=== PATIENT | female | born 1995 | race Caucasian/White ===

== ENCOUNTER 2017-02-03 04:26 | Emergency (ER) | payer BC ==
[2017-02-03 04:37] VITALS: BP 123/72
--- NOTE | 2017-02-03 05:28 | ED ---
Dora Diamond Rebecca, scribed for Shante Mesa MD on 02/03/17 at 0442 . Lower Extremity - HPI Summary HPI Summary: Pt is a 21 y/o F BIBA who presents to ED c/o R ankle pain s/p mechanical fall. At 0230 this morning, the pt was walking in a stairwell without lights when she suddenly slipped down 3 steps. R ankle pain and swelling began immediately after impact and has been constant since onset. Pain is currently severe, ranked 7/10 and characterized as sharp. Sx aggravated by movement, alleviated by nothing. Denies any other symptoms including fever. - History of Current Complaint Chief Complaint: EDExtremityLower Stated Complaint: RIGHT ANKLE INJURY Hx Obtained From: Patient Mechanism Of Injury: Fall From A Standing Position Onset of Pain: Prior to Arrival Onset/Duration: Still Present Severity Initially: Severe Severity Currently: Severe Pain Intensity: 7 Pain Scale Used: 0-10 Numeric Timing: Constant Location: Is Discrete @ - R ankle Character Of Pain: Sharp Associated Signs And Symptoms: Positive: Swelling. Negative: Fever Aggravating Factor(s): Movement Alleviating Factor(s): Nothing - Allergies/Home Medications Allergies/Adverse Reactions: Allergies Allergy/AdvReac Type Severity Reaction Status Date / Time Tree Nuts Allergy Anaphylatic Verified 02/03/17 04:56 Shock PMH/Surg Hx/FS Hx/Imm Hx Endocrine/Hematology History: Denies: Hx Diabetes Cardiovascular History: Denies: Hx Hypertension Respiratory History: Reports: Hx Asthma Infectious Disease History: No Infectious Disease History: Denies: Traveled Outside the [place] in Last 30 Days - Family History Known Family History: Positive: Other - HLD (father) - Social History Occupation: Student Alcohol Use: Occasionally Substance Use Type: Reports: None Smoking Status (MU): Never Smoked Tobacco Review of Systems Negative: Fever Positive: Arthralgia - R ankle pain s/p mechanical fall All Other Systems Reviewed And Are Negative: Yes Physical Exam - Summary Physical Exam Summary: General: Well appearing, no pain distress Skin: Warm, Skin Color Reflects Adequate Perfusion, Dry Eyes: EOMI, DANIAL ENT: Pharynx normal, TMs normal Neck: Supple, nontender Respiratory: CTA, breath sounds present, no rhonchi, no wheezes, no rales Cardiovascular: RRR, no murmur, no rub, no gallop Abdomen: Soft, nontender, Non-distended, no guarding, no rebound Bowel: Present Musculoskeletal: No edema, tenderness on the lateral side of the R ankle. No tenderness on the medial aspect of the ankle. Neuro: Sensory/motor intact, A&Ox3, CN intact 2-12 Psych: Affect/mood appropriate Triage Information Reviewed: Yes Vital Signs On Initial Exam: Initial Vitals Temp Pulse Resp BP Pulse Ox 99.1 F 110 16 123/72 98 02/03/17 04:28 02/03/17 04:28 02/03/17 04:28 02/03/17 04:28 02/03/17 04:28 Vital Signs Reviewed: Yes Diagnostics - Vital Signs Vital Signs Temp Pulse Resp BP Pulse Ox 02/03/17 04:28 99.1 F 110 16 123/72 98 - Laboratory Lab Statement: Any lab studies that have been ordered have been reviewed, and results considered in the medical decision making process. - Radiology Ankle XR Xray Interpretation: Positive (See Comments) - Avulsion fracture on the medial malleolus Radiology Interpretation Completed By: ED Physician Re-Evaluation - Re-Evaluation First Eval Re-Evaluation Time: 05:21 Change: Unchanged Comment: Discussed XR results with patient and the current treatment plan to D/ C the patient and have her followup with orthopedics. Lower Extremity Course/Dx - Course Course Of Treatment: mild medial malleolar tenderness (avulsion fx on xray) with lateral malleolar swelling normal mortisse. pt to be placed in a cam walker with ortho followup - Diagnoses Provider Diagnoses: Avulsion fracture Discharge - Discharge Plan Condition: Stable Disposition: HOME Prescriptions: HYDROcodone/ACETAMIN 5-325 MG* [[place] 5-325 TAB*] 1 tab PO Q8H PRN #14 tab MDD 3 PRN Reason: Pain Patient Education Materials: Avulsion Fracture (ED) Referrals: Jose Maciel MD [Medical Doctor] - 2 Days The documentation as recorded by the Dora lancaster Rebecca accurately reflects the service I personally performed and the decisions made by me, Shante Mesa MD.
[2017-02-03] MEDS: HYDROcodone/ACETAMIN 5-325 MG* 1 TAB PO ONE ×2 (05:52→05:58)
--- NOTE | 2017-02-03 08:13 | RAD ---
INDICATION: Right ankle injury. TECHNIQUE: 3 views of the right ankle were obtained. FINDINGS: Soft tissue swelling is noted along the anterolateral aspect of the ankle. There is suggestion of a small avulsion fracture fragment arising from the tip of the medial malleolus. No other fractures are seen. IMPRESSION: SOFT TISSUE SWELLING AND SMALL AVULSION FRACTURE FRAGMENT ARISING FROM THE TIP OF THE MEDIAL MALLEOLUS.
== END 2017-02-03 06:06 | disposition home or self-care (01) ==
LOC: ED 04:26
DX: S82.51XA Displaced fracture of medial malleolus of right tibia, initial encounter for closed fracture (principal); R60.0 Localized edema; W10.9XXA Fall (on) (from) unspecified stairs and steps, initial encounter; Y93.9 Activity, unspecified; Y92.9 Unspecified place or not applicable; Y99.9 Unspecified external cause status
CPT/HCPCS: 99283

== ENCOUNTER 2018-07-26 17:12 | Emergency (ER) | payer BC ==
[2018-07-26] MEDS ORDERED: Lidocaine 2% VISCOUS* 15 ML UDC PO ONE (17:14)
[2018-07-26] MEDS ORDERED: Acetaminophen TAB* 325 MG PO ONE (17:17)
--- NOTE | 2018-07-26 18:09 | ED ---
Influenza-Like Illness - HPI Summary HPI Summary: This is a 22-year-old female, history of asthma, who works as a emergency department scribe, who presents for sore throat since yesterday. Mild pain with swallowing. Also reports a mild headache, no associated cough. Watery diarrhea started yesterday as well. The diarrhea has been nonbloody. She also presents with chills. She has not yet received her influenza immunization. - History of Current Complaint Chief Complaint: EDFluSymptoms Time Seen by Provider: 07/26/18 17:13 Hx Obtained From: Patient Onset/Duration: Gradual Onset, Lasting Days - 2, Still Present Severity: Moderate Associated Signs & Symptoms: Fever, Sore Throat, Diarrhea Related Hx: Possible Flu/Infectious Exposure - Allergy/Home Medications Allergies/Adverse Reactions: Allergies Allergy/AdvReac Type Severity Reaction Status Date / Time Tree Nuts Allergy Anaphylatic Verified 02/03/17 04:56 Shock Home Medications: Home Medications NK [No Home Medications Reported] 07/26/18 [History Confirmed 07/26/18] PMH/Surg Hx/FS Hx/Imm Hx Previously Healthy: No Endocrine/Hematology History: Denies: Hx Diabetes Cardiovascular History: Denies: Hx Hypertension Respiratory History: Reports: Hx Asthma Infectious Disease History: No Infectious Disease History: Denies: Traveled Outside the [place] in Last 30 Days - Family History Known Family History: Positive: Other - HLD (father) - Social History Alcohol Use: Occasionally Substance Use Type: Reports: None Smoking Status (MU): Never Smoked Tobacco Review of Systems Positive: Fever Eyes: Negative Negative: Photophobia ENT: Negative Cardiovascular: Negative Respiratory: Negative Gastrointestinal: Negative Genitourinary: Negative Musculoskeletal: Negative Positive: Myalgia Skin: Negative Neurological: Negative Negative: Headache, Weakness Psychological: Normal All Other Systems Reviewed And Are Negative: Yes Physical Exam Triage Information Reviewed: Yes Vital Signs On Initial Exam: Initial Vitals Temp Pulse Resp BP Pulse Ox 39.2 C 114 17 125/69 96 07/26/18 17:13 07/26/18 17:13 07/26/18 17:13 07/26/18 17:13 07/26/18 17:13 Vital Signs Reviewed: Yes Appearance: Positive: Well-Appearing Skin: Positive: Warm, Dry Head/Face: Positive: Normal Head/Face Inspection Eyes: Positive: Normal, EOMI, DANIAL ENT: Positive: Tonsillar exudate, Other - There is no peritonsillar abscess.. Negative: Trismus, Muffled voice, Hoarse voice Neck: Positive: Supple, Nontender, No Lymphadenopathy Respiratory/Lung Sounds: Positive: Clear to Auscultation, Breath Sounds Present Cardiovascular: Positive: Normal, RRR Abdomen Description: Positive: Nontender, No Organomegaly, Soft Bowel Sounds: Positive: Present Musculoskeletal: Positive: Normal Neurological: Positive: Normal Psychiatric: Positive: Normal AVPU Assessment: Alert - Lenka Coma Scale Best Eye Response: 4 - Spontaneous Best Motor Response: 6 - Obeys Commands Best Verbal Response: 5 - Oriented Coma Scale Total: 15 Diagnostics - Vital Signs Vital Signs Temp Pulse Resp BP Pulse Ox 07/26/18 17:13 39.2 C 114 17 125/69 96 - Laboratory Lab Results: Lab Results 07/26/18 Range/Units 17:40 Group A Strep Rapid Negative (Negative) Lab Statement: Any lab studies that have been ordered have been reviewed, and results considered in the medical decision making process. Flu Symptom Course/Dx - Course Course Of Treatment: The patient's tolerating by mouth, nontoxic appearing, the fevers resolved. Influenza and strep testing is negative, viral etiology. - Diagnoses Provider Diagnoses: Acute viral pharyngitis Discharge - Sign-Out/Discharge Documenting (check all that apply): Patient Departure - Discharge Plan Condition: Good Disposition: HOME Patient Education Materials: Pharyngitis (ED) Forms: *Work Release Referrals: Tammy Gracia, [employer] [Primary Care Provider] - 2 Days Additional Instructions: take ibuprofen, warm to me, chicken soup. Ice cream may also help. - Billing Disposition and Condition Condition: GOOD Disposition: Home
[2018-07-26 19:37] VITALS: BP 126/83
== END 2018-07-26 19:37 | disposition home or self-care (01) ==
LOC: ED 17:12
DX: J02.9 Acute pharyngitis, unspecified (principal); R50.9 Fever, unspecified; R19.7 Diarrhea, unspecified
CPT/HCPCS: 36415; 86308; 87651; 99283; A9270-GY

== ENCOUNTER 2019-02-04 13:22 | Day surgery (SDC) | payer BC ==
[~2019-02-04 13:22] MED LIST: Buffered Lidocaine 1% SYRIN* 1 ML/SYRINGE INTRADERM ONE; Dexamethasone TAB* 4 MG ONE; Dexamethasone TAB* 4 MG PO ONE; DiMENhydriNATE IV* 50 MG/ML VIAL IV PUSH PRN; Famotidine IV* 10 MG/ML 2 ML (20 mg) IV ONE; Famotidine IV* 10 MG/ML 2 ML (20 mg) ONE; Lactated Ringers 1000 ML Bag* 1,000 ML IV SCH; Levalbuterol 0.63MG/3ML NEB* UNIT OF USE INH ONE; Morphine 4 MG/ML VIAL (1 ml) 4 MG/ML VIAL IV PRN; Naloxone* 0.4 MG/ML 1 ML VIAL IV PRN; Ondansetron INJ* 2 MG/ML VIAL ONE; PROCHLORPERAZINE INJ 5 MG/ML 2 ML VIAL IV PRN; Scopolamine 1.5 mg* PATCH TRANSDERM PRN; fentaNYL* 50 MCG/ML 2 ML VIAL (100 MCG VIAL) IV PRN; oxyCODONE/Acetamin 5/325 MG* TAB PO PRN
[2019-02-04] MEDS ORDERED: KETAMINE HCL* 50 MG/ML 10 ML VIAL ONE (13:38)
[2019-02-04] MEDS ORDERED: Midazolam* 1 MG/ML 5 ML VIAL (5 MG) ONE (13:38)
[2019-02-04] MEDS ORDERED: fentaNYL* 50 MCG/ML 2 ML VIAL (100 MCG VIAL) ONE (13:38)
[2019-02-04] MEDS ORDERED: Levalbuterol 0.63MG/3ML NEB* UNIT OF USE INH ONE (13:58)
[2019-02-04] MEDS ORDERED: Bupivacaine 0.5% W/EPI SDV* 30 ML VIAL ONE (14:09)
[2019-02-04] MEDS ORDERED: Lidocaine 1% INJ* 10 MG/ML 30 ML SDV ONE (14:09)
[2019-02-04] MEDS ORDERED: Lidocaine 2% JELLY* 20 ML (for OR use) ONE (14:09)
[2019-02-04] MEDS ORDERED: Propofol* 500 MG/50 ML BTL ONE (14:59)
[2019-02-04] MEDS ORDERED: Ketorolac INJ* 30 MG/ML 1 ML VIAL ONE (14:59)
[2019-02-04] MEDS ORDERED: Lidocaine 2% PF * 5 ML VIAL ONE (14:59)
--- NOTE | 2019-02-04 15:04 | BRIEFOPN ---
Brief Operative Note - Surgery Procedures: OPERATIVE NOTE Pre-Operative Diagnosis:Anal abscess, possible anal fistula Post-Operative Diagnosis:Posterior midline anal fistula Procedure:Anorectal exam under anesthesia, Seton suture placement Surgeon: Carl Torres MD Personal Injury Litigation Paralegal:none Anesthesia: Local with MAC General with IVF:min EBL:min Specimen:none Drain: none Wound Class:4 TO PACU
[2019-02-04 16:17] VITALS: BP 124/83
--- NOTE | 2019-02-04 21:41 | OP ---
DATE OF OPERATION: 02/04/19 [facility] DATE OF : [birth year] SURGEON: Renzo Torres MD SECURITY SERVICES MANAGER: None. ANESTHESIOLOGIST: Dr. Cope. ANESTHESIA: Local with monitored anesthesia care. PRE-OP DIAGNOSIS: Recurrent perianal abscesses and anal discomfort. POST-OP DIAGNOSES: 1. Recurrent perianal abscesses and anal discomfort. 2. Posterior midline anal fistula. OPERATIVE PROCEDURE: Anorectal exam under anesthesia with placement of a seton suture. ESTIMATED BLOOD LOSS: Minimal. WOUND CLASSIFICATION: Not applicable. COMPLICATIONS: None. DRAINS: Seton sutures consisting of blue vessel loop. FINDINGS: The patient had a fairly superficial anal fistula in the posterior midline and seton sutures were placed. Also noted were small internal hemorrhoids. No evidence of fissure or other pathology was noted. DESCRIPTION OF PROCEDURE: Written informed consent was obtained and the patient was taken to the operating room and administered anesthesia and placed in the prone jackknife position. Sequential compression devices and warming blanket were applied. The perineum and buttocks were prepped and draped in the usual sterile fashion. Time-out verification was completed. The standard perianal block using 0.25% Marcaine mixed with 1% lidocaine with epinephrine was then performed. Careful evaluation of the external anal verge area showed a small pinpoint opening, which expressed some purulent material at the 12 o'clock position only about a centimeter to half from the anal verge. Examination of the anal canal revealed some small to moderate sized internal hemorrhoids, but no evidence of ulceration or bleeding. There was no evidence of abscess. There was no evidence of fissure. There was an internal opening at the anal canal at the 12 o'clock position and I was able to easily pass a probe through this to the external opening also at the 12 o'clock position showing findings consistent with an anal fistula. Due to this location, although this appeared to be fairly superficial, I did place a blue vessel loop as a seton suture and this was tied together with 0 silk ties. No other abnormality was noted. Some lidocaine gel was placed in the anal canal. A dry sterile dressing was applied. The patient tolerated the procedure well and was taken to the recovery room in stable condition. [id number]/[facility] #: [id number] [facility]
== END 2019-02-04 16:16 | disposition home or self-care (01) ==
LOC: OR 13:22
PROVIDERS: ATTEND Surgery
DX: K60.3 Anal fistula (principal); K60.1 Chronic anal fissure; J45.909 Unspecified asthma, uncomplicated; F32.9 Major depressive disorder, single episode, unspecified
CPT/HCPCS: 81025; J1885; J2250; J2405; J2704; J3010; J8540

== ENCOUNTER 2019-03-01 07:10 | Day surgery (SDC) | payer BC ==
[~2019-03-01 07:10] MED LIST changes: +Dexamethasone IV* 4 MG/ML 1 ML (4 MG) IV SLOW PU ONE; -Dexamethasone TAB* 4 MG ONE; -Dexamethasone TAB* 4 MG PO ONE; -DiMENhydriNATE IV* 50 MG/ML VIAL IV PUSH PRN; -Famotidine IV* 10 MG/ML 2 ML (20 mg) ONE; -Levalbuterol 0.63MG/3ML NEB* UNIT OF USE INH ONE; -Morphine 4 MG/ML VIAL (1 ml) 4 MG/ML VIAL IV PRN; -Naloxone* 0.4 MG/ML 1 ML VIAL IV PRN; -Ondansetron INJ* 2 MG/ML VIAL ONE; -PROCHLORPERAZINE INJ 5 MG/ML 2 ML VIAL IV PRN; -Scopolamine 1.5 mg* PATCH TRANSDERM PRN; -fentaNYL* 50 MCG/ML 2 ML VIAL (100 MCG VIAL) IV PRN; -oxyCODONE/Acetamin 5/325 MG* TAB PO PRN
[2019-03-01] MEDS ORDERED: Dexamethasone IV* 4 MG/ML 1 ML (4 MG) ONE (07:50)
[2019-03-01] MEDS ORDERED: Buffered Lidocaine 1% SYRIN* 1 ML/SYRINGE INTRADERM ONE (07:50)
[2019-03-01] MEDS ORDERED: Famotidine IV* 10 MG/ML 2 ML (20 mg) ONE (07:50)
[2019-03-01] MEDS ORDERED: Midazolam* 1 MG/ML 5 ML VIAL (5 MG) ONE (08:58)
[2019-03-01] MEDS ORDERED: fentaNYL* 50 MCG/ML 2 ML VIAL (100 MCG VIAL) ONE (08:58)
[2019-03-01] MEDS ORDERED: Lidocaine 1% INJ* 10 MG/ML 30 ML SDV ONE (09:17)
[2019-03-01] MEDS ORDERED: Lidocaine 2% JELLY* 20 ML (for OR use) ONE (09:17)
[2019-03-01] MEDS ORDERED: Bupivacaine 0.5% W/EPI SDV* 30 ML VIAL ONE (09:17)
[2019-03-01] MEDS ORDERED: Propofol* 10 MG/ML 20 ML BTL ONE (09:32)
[2019-03-01] MEDS ORDERED: Lidocaine 2% PF * 5 ML VIAL ONE (09:32)
[2019-03-01] MEDS ORDERED: KETAMINE HCL* 50 MG/ML 10 ML VIAL ONE (09:32)
[2019-03-01] MEDS ORDERED: Ondansetron INJ* 2 MG/ML VIAL ONE (10:02)
--- NOTE | 2019-03-01 10:11 | BRIEFOPN ---
Brief Operative Note - Surgery Procedures: OPERATIVE REPORT Pre-op: Posterior anal fistula Post-Op: Posterior anal fistula Procedure:Anal fistulotomy Surgeon: MD Brian Asst: none Anes: Local with MAC IVF:min EBL:min Specimen: none Drain: none Wound: N/A To PACU
[2019-03-01 10:12] VITALS: BP 131/82
[2019-03-01] MEDS ORDERED: fentaNYL* 50 MCG/ML 2 ML VIAL (100 MCG VIAL) IV PRN (10:22)
[2019-03-01] MEDS ORDERED: HYDROcodone/ACETAMIN 5-325 MG* 1 TAB PO PRN (10:22)
[2019-03-01] MEDS ORDERED: oxyCODONE/Acetamin 5/325 MG* TAB PO PRN (10:22)
[2019-03-01] MEDS ORDERED: Naloxone* 0.4 MG/ML 1 ML VIAL IV PRN (10:22)
[2019-03-01] MEDS ORDERED: Acetaminophen TAB* 325 MG PO PRN (10:22)
--- NOTE | 2019-03-01 12:46 | OP ---
DATE OF OPERATION: 03/01/19 [facility] DATE OF : [birth year] SURGEON: Renzo Torres MD SYSTEMS PLANNER: None. ANESTHESIOLOGIST: Dr. Garrett. ANESTHESIA: Local with monitored anesthesia care. PRE-OPERATIVE DIAGNOSIS: Posterior anal fistula, superficial. POST-OPERATIVE DIAGNOSIS: Posterior anal fistula, superficial. OPERATIVE PROCEDURE: Anal fistulotomy with exam under anesthesia. ESTIMATED BLOOD LOSS: Trace. SPECIMENS: None. WOUND CLASSIFICATION: Nonapplicable. DRAINS: None. BRIEF HISTORY: Ms. Sg Eric is a 23-year-old woman who had a very superficial perianal abscess in the posterior midline that developed into an anal fistula. A seton suture was placed several weeks ago and she has been doing well. No further abscess or infection. She does not have a history of a fissure. At this time, she is being taken to the operating room for exam under anesthesia, removal of the seton suture and planned fistulotomy. DESCRIPTION OF PROCEDURE: Written informed consent was obtained. The patient was taken to the operating room, placed in the prone jackknife position. Intravenous sedation was administered. Warming blanket and SCDs were placed. The perineum and buttocks were prepped and draped in usual sterile fashion. Time-out verification was completed. A 0.25% Marcaine mixed with 1% lidocaine with epinephrine was infiltrated and a posterior anal block was performed. Exam with a speculum revealed the previously placed seton suture through a very superficial anal fistula tract in the posterior midline that basically appeared to be only skin and did not involve underlying sphincter muscle. The bridging of skin was opened and unroofed with cautery and some minimal amount of granulation tissue was curetted and cauterized. There was no noted sphincter muscle divided during this fistulotomy. There were no other abnormalities noted on exam. Lidocaine gel was placed over the raw surface area. Dry dressing was placed. The patient tolerated the procedure well and was taken to the recovery room in stable condition. [id number]/[facility] #: [id number] [facility]
== END 2019-03-01 11:05 | disposition home or self-care (01) ==
LOC: OR 07:10
PROVIDERS: ATTEND Surgery
DX: K60.3 Anal fistula (principal); J45.909 Unspecified asthma, uncomplicated; F32.9 Major depressive disorder, single episode, unspecified
CPT/HCPCS: 81025; J1100; J2250; J2405; J2704; J3010